=== PATIENT | female | born 1990 | race Caucasian/White ===

== ENCOUNTER 2018-06-02 08:45 | Emergency (ER) | payer BC ==
[2018-06-02] MEDS: FLUORESCEIN OPHTH 1 MG STRIP OD (09:00)
[2018-06-02] MEDS: TETRACAINE 0.5% OPHTH SOLN 4ML OD (09:00)
== END 2018-06-02 09:29 | disposition home or self-care (01) ==
LOC: M ED 08:45
DX: S05.01XA Injury of conjunctiva and corneal abrasion without foreign body, right eye, initial encounter (principal); X58.XXXA Exposure to other specified factors, initial encounter; Y92.89 Other specified places as the place of occurrence of the external cause; F17.210 Nicotine dependence, cigarettes, uncomplicated
CPT/HCPCS: 99283

== ENCOUNTER 2019-10-20 10:40 | Emergency (ER) | payer BC ==
[~2019-10-20] VITALS: Ht 170.2 cm; Wt 100.6 kg
[~2019-10-20 10:40] MED LIST: ERYTOIN8 OS
[2019-10-20] MEDS ORDERED: ALPR0.5T3 (10:55)
[2019-10-20] MEDS ORDERED: MECLIZINE 25 MG TABLET PO ONE (11:30)
[2019-10-20 12:46] LABS: BASO % 0.3 % (0.0-1.0); EOS # 0.2 10^3/uL (0.0-0.5); EOS % 1.8 % (0.0-3.0); HEMATOCRIT 43.9 % (36.0-47.0); HEMOGLOBIN 14.6 g/dl (12.0-15.5); LYMPH % 22.6 % (24.0-44.0); MEAN CORPUSCULAR HEMOGLOBIN 30.3 pg (27.0-33.0); MEAN CORPUSCULAR HGB CONC 33.3 g/dl (32.0-36.5); MEAN CORPUSCULAR VOLUME 91.1 fl (80.0-96.0); MONO # 0.5 10^3/uL (0.0-0.8); MONO % 5.1 % (0.0-5.0); NEUTROPHILS # 6.3 10^3/uL (1.5-8.5); NEUTROPHILS % 69.9 % (36.0-66.0); PLATELET COUNT, AUTOMATED 251 10^3/uL (150-450); RED BLOOD COUNT 4.82 10^6/uL (4.00-5.40)
[2019-10-20 13:40] LABS: ALBUMIN 4.4 GM/DL (3.2-5.2); ALT/SGPT 21 U/L (12-78); BILIRUBIN,TOTAL 0.3 MG/DL (0.2-1.0); BLOOD UREA NITROGEN 15 MG/DL (7-18); CALCIUM LEVEL 9.2 MG/DL (8.5-10.1); CARBON DIOXIDE LEVEL 26 MEQ/L (21-32); CHLORIDE LEVEL 109 MEQ/L (98-107); CREATININE FOR GFR 0.79 MG/DL (0.55-1.30); GLOMERULAR FILTRATION RATE > 60.0 (>60); GLUCOSE, FASTING 80 MG/DL (70-100); POTASSIUM SERUM 3.8 MEQ/L (3.5-5.1); SODIUM LEVEL 139 MEQ/L (136-145); TOTAL PROTEIN 7.7 GM/DL (6.4-8.2)
--- NOTE | 2019-10-20 14:07 | REPVR ---
PROCEDURE INFORMATION: Exam: CT Cervical Spine Without Contrast Exam date and time: 10/20/2019 1:43 PM Age: 29 years old Clinical indication: Radicular pain (radiculopathy); Location of radicular pain not specified; Additional info: B/l ue radiculopathy TECHNIQUE: Imaging protocol: Computed tomography images of the cervical spine without contrast. Radiation optimization: All CT scans at this facility use at least one of these dose optimization techniques: automated exposure control; mA and/or kV adjustment per patient size (includes targeted exams where dose is matched to clinical indication); or iterative reconstruction. COMPARISON: No relevant prior studies available. FINDINGS: Vertebrae: There is straightening the cervical lordosis No acute fracture. Normal alignment. Discs/Spinal canal/Neural foramina: No significant degenerative disease. No spinal canal stenosis. No neural foraminal narrowing. Soft tissues: Unremarkable. Lungs: Lung apices are normal. IMPRESSION: No acute fracture, listhesis or advanced degenerative change. Electronically signed by: Yulissa Carranza On 10/20/2019 14:07:20 PM
[2019-10-20 14:37] VITALS: BP 139/93
--- NOTE | 2019-10-22 06:19 | ECGEPIP ---
[facility] - ED Test Date: 2019-10-20 Pat Name: SAMIR POPE Department: Room: - Gender: Female Cia Agent: : [id number] Requested By: KELVIN Franklin PA-C Order Number: [id number] Reading MD: Alexander Burrell Measurements Intervals Doole Rate: 61 P: 41 CT: 153 QRS: 49 QRSD: 92 T: 32 QT: 375 QTc: 379 Interpretive Statements SINUS RHYTHM WITH SINUS ARRHYTHMIA POSSIBLE INCOMPLETE RIGHT BUNDLE BRANCH BLOCK BENIGN EARLY REPOLARIZATION NO PRIORS FOR COMPARISON Electronically Signed on 10-22-2019 6:19:09 EST by Alexander Burrell
== END 2019-10-20 14:48 | disposition home or self-care (01) ==
LOC: M ED 10:40
DX: R03.0 Elevated blood-pressure reading, without diagnosis of hypertension (principal); G56.93 Unspecified mononeuropathy of bilateral upper limbs; H93.90 Unspecified disorder of ear, unspecified ear; F41.9 Anxiety disorder, unspecified; F32.9 Major depressive disorder, single episode, unspecified; Z86.79 Personal history of other diseases of the circulatory system; F17.200 Nicotine dependence, unspecified, uncomplicated; Z91.89 Other specified personal risk factors, not elsewhere classified

== ENCOUNTER → 2019-10-22 | Outpatient (REF) | payer BC ==
[~2019-10-22] MED LIST changes: +ALPR0.5T3
[2019-10-22 17:41] LABS: APPEARANCE, URINE CLEAR (CLEAR); BACTERIA, URINE AUTO NEGATIVE (NEGATIVE); BILIRUBIN, URINE AUTO NEGATIVE (NEGATIVE); BLOOD, URINE BLOOD NEGATIVE (NEGATIVE); COLOR, URINE YELLOW (YELLOW); GLUCOSE, URINE (UA) AUTO NEGATIVE (NEGATIVE); KETONE, URINE AUTO NEGATIVE (NEGATIVE); LEUKOCYTE ESTERASE, URINE AUTO NEGATIVE (NEGATIVE); MUCUS, URINE SMALL (NEGATIVE); NITRITE, URINE AUTO NEGATIVE (NEGATIVE); PROTEIN, URINE AUTO NEGATIVE (NEGATIVE); RBC, URINE AUTO 0 /HPF (0-3); SPECIFIC GRAVITY URINE AUTO 1.013 (1.002-1.035); SQUAMOUS EPITHELIAL CELL UR AU 1 /HPF (0-6); UROBILINOGEN, URINE AUTO 0.2 mg/dL (0.0-2.0); WBC, URINE AUTO 0 /HPF (0-3)
== END ==
LOC: M LAB REF 16:58
PROVIDERS: ATTEND Nurse Practitioner Women's Health
DX: N39.0 Urinary tract infection, site not specified (principal)

== ENCOUNTER 2020-05-04 17:47 | Emergency (ER) | payer BC, MEDICAID ==
[~2020-05-04] VITALS: Ht 170.2 cm; Wt 97.7 kg
[2020-05-04] MEDS ORDERED: ALPRAZolam 0.5 MG TAB PO ONE (19:00)
[2020-05-04] MEDS ORDERED: HYDR-3363 PO (19:04)
[2020-05-04] MEDS ORDERED: AMOX875T2 PO (19:04)
[2020-05-04] MEDS ORDERED: ONDA4TAB6 PO (19:04)
[2020-05-04] MEDS ORDERED: OXAZ30CA2 PO (20:34)
[2020-05-04 20:59] VITALS: BP 139/91
== END 2020-05-04 21:00 | disposition home or self-care (01) ==
LOC: M ED 17:47
DX: F41.9 Anxiety disorder, unspecified (principal); F10.20 Alcohol dependence, uncomplicated; I51.9 Heart disease, unspecified; F17.200 Nicotine dependence, unspecified, uncomplicated; Z91.89 Other specified personal risk factors, not elsewhere classified

== ENCOUNTER 2023-11-15 23:44 | Emergency (ER) | payer MEDICAID, MEDICARE, OTHER ==
[~2023-11-15] VITALS: Ht 170.2 cm; Wt 106.4 kg
[2023-11-15 23:44] VITALS: TEMP 97.4
[~2023-11-15 23:44] MED LIST changes: +AMOX875T2 PO; +HYDR-3363 PO; +ONDA4TAB6 PO; +OXAZ30CA2 PO
[2023-11-16] MEDS: BOOSTRIX VACCINE (TETANUS/DIPHTH/ACEL. PERTUSSIS) 0.5ML SYR IM.IMMUN ONE (00:25)
[2023-11-16] MEDS ORDERED: BACI500O8 TOP (00:29)
[2023-11-16 01:55] VITALS: BP 136/86; O2SAT 97
== END 2023-11-16 02:22 | disposition home or self-care (01) ==
LOC: M ED 23:44
DX: S01.01XA Laceration without foreign body of scalp, initial encounter (principal); S43.005A Unspecified dislocation of left shoulder joint, initial encounter; W10.8XXA Fall (on) (from) other stairs and steps, initial encounter; F10.10 Alcohol abuse, uncomplicated; F41.9 Anxiety disorder, unspecified; Y92.009 Unspecified place in unspecified non-institutional (private) residence as the place of occurrence of the external cause; Y93.89 Activity, other specified; Y99.9 Unspecified external cause status; Z79.83 Long term (current) use of bisphosphonates; Z79.2 Long term (current) use of antibiotics; Z79.899 Other long term (current) drug therapy; Z91.048 Other nonmedicinal substance allergy status; Z23 Encounter for immunization

== ENCOUNTER → 2023-11-20 | Outpatient (CLI) | payer OTHER ==
[~2023-11-20] MED LIST changes: +BACI500O8 TOP
== END ==
LOC: M SOG 07:53
PROVIDERS: ATTEND Physician Assistant
DX: M25.512 Pain in left shoulder (principal); M21.822 Other specified acquired deformities of left upper arm

== ENCOUNTER → 2023-12-31 | Outpatient (CLI) | payer OTHER | LOC: M SOG 07:53 | PROVIDERS: ATTEND Physician Assistant | DX: M25.512 Pain in left shoulder (principal); Z53.9 Procedure and treatment not carried out, unspecified reason ==

== ENCOUNTER → 2024-05-14 | Outpatient (REF) | payer OTHER ==
[~2024-05-14] MED LIST changes: +ONDA-282 PO; -ONDA4TAB6 PO
[2024-05-14 19:09] LABS: HEMOGLOBIN A1c 5.2 % (4.0-6.0)
[2024-05-14 19:29] LABS: ALBUMIN 4.3 G/DL (3.2-5.2); ALKALINE PHOSPHATASE 87 U/L (46-116); ALT/SGPT 19 U/L (7.0-40); AST/SGOT 12 U/L (<34); BILIRUBIN,TOTAL 0.3 MG/DL (0.3-1.2); BLOOD UREA NITROGEN 13 MG/DL (9-23); CALCIUM LEVEL 9.9 MG/DL (8.5-10.1); CARBON DIOXIDE LEVEL 28 MMOL/L (20-31); CHLORIDE LEVEL 105 MMOL/L (98-107); CHOLESTEROL LEVEL 179 MG/DL (<200); CHOLESTEROL RISK RATIO 3.55 (<5); GLOMERULAR FILTRATION RATE > 60.0 (>60); GLUCOSE, FASTING 99 MG/DL (60-100); HDL CHOLESTEROL 50.4 MG/DL (>40); LDL CHOLESTEROL 90.2 MG/DL (<100); MAGNESIUM LEVEL 1.8 MG/DL (1.8-2.4); NON-HDL-C 128.6 MG/DL; POTASSIUM SERUM 4.4 MMOL/L (3.5-5.1); SODIUM LEVEL 139 MMOL/L (136-145); TOTAL PROTEIN 7.4 G/DL (5.7-8.2); TRIGLYCERIDES LEVEL 192 MG/DL (<150)
[2024-05-14 19:30] LABS: THYROID STIMULATING HORMONE 1.171 uIU/ML (0.55-4.78)
== END ==
LOC: M LAB REF 16:47
PROVIDERS: ATTEND Physician Assistant
DX: E66.9 Obesity, unspecified (principal); E55.9 Vitamin D deficiency, unspecified; R00.0 Tachycardia, unspecified

== ENCOUNTER → 2024-05-20 | Outpatient (CLI) | payer OTHER | LOC: M EKG 08:59 | PROVIDERS: ATTEND Physician Assistant | DX: R00.0 Tachycardia, unspecified (principal); Z53.9 Procedure and treatment not carried out, unspecified reason ==

== ENCOUNTER → 2024-06-05 | Outpatient (CLI) | payer OTHER | LOC: M RAD 10:04 | PROVIDERS: ATTEND Physician Assistant | DX: R00.0 Tachycardia, unspecified (principal) ==